=== PATIENT | female | born 1980 | race Caucasian/White ===

== ENCOUNTER 2024-07-20 08:14 | Emergency (ER) | payer MEDICAID ==
[~2024-07-20] VITALS: Ht 157.5 cm; Wt 68.0 kg
[~2024-07-20 08:14] MED LIST: METH-371 MT
[2024-07-20 08:17] VITALS: O2SAT 98
[2024-07-20] MEDS: ADENOSINE 3 MG/ML 2ML VIAL IV STA (08:32)
[2024-07-20 08:52] LABS: BASOPHILS % 0.6 % (0.0-2.0); EOSINOPHILS % 1.2 % (0.0-5.0); HEMOGLOBIN. 11.3 g/dL (12.0-16.0); LYMPHOCYTES % 31.7 % (20.0-50.0); MEAN CORPUSCULAR HEMOGLOBIN 25.4 pg (28.0-32.0); MEAN CORPUSCULAR HGB CONC 31.5 g/dL (31.0-37.0); MEAN CORPUSCULAR VOLUME 80.7 fL (81.0-99.0); MEAN PLATELET VOLUME 9.6 fl (7.4-10.4); MONOCYTES % 7.1 % (2.0-8.0); NEUTROPHILS % 59.4 % (40.0-76.0); PLATELET 424 x1000/uL (130-400); RED BLOOD CELL COUNT 4.47 mill/uL (4.2-5.4); RED CELL DISTRIBUTION WIDTH 16.9 % (11.6-14.6)
[2024-07-20 09:01] LABS: CHLORIDE 106 mEq/L (98-107); POTASSIUM 4.2 mEq/L (3.5-5.1); SODIUM 136 mEq/L (136-145)
[2024-07-20 09:02] LABS: CALCIUM 9.4 mg/dL (8.7-10.4); CARBON DIOXIDE 23 mEq/L (21-32)
[2024-07-20 09:07] LABS: CREATININE 0.8 mg/dL (0.6-1.0); GLUCOSE 148 mg/dL (70-105); UREA NITROGEN BLOOD 11 mg/dL (9-23)
[2024-07-20 09:09] LABS: PHOSPHORUS 3.7 mg/dL (2.5-4.9)
[2024-07-20 09:12] LABS: T4 FREE 1.29 ng/dL (0.89-1.76); THYROID STIMULATING HORMONE 2.02 uIU/mL (0.55-4.78)
[2024-07-20 10:04] VITALS: BP 103/74; PULSE 113; RESP 17; TEMP 36.66960; O2SAT 98
== END 2024-07-20 10:14 | disposition home or self-care (01) ==
LOC: ER 08:22
DX: I47.10 Supraventricular tachycardia, unspecified (principal)
CPT/HCPCS: 80048; 84439; 83735; 84100; 84443; 85025; 36415; 93005; 96374; 99284; J0153; Z7610 ×2